=== PATIENT | female | born 1965 | race Caucasian/White ===

== ENCOUNTER 2018-06-15 09:49 | Emergency (ER) | payer OTHER ==
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
[2018-06-15 13:46] VITALS: BP 136/72; TEMP 99.2; O2SAT 99
== END 2018-06-15 13:30 | disposition home or self-care (01) ==
LOC: ER 09:49
DX: S62.350A Nondisplaced fracture of shaft of second metacarpal bone, right hand, initial encounter for closed fracture (principal); S39.012A Strain of muscle, fascia and tendon of lower back, initial encounter; N30.00 Acute cystitis without hematuria; M47.812 Spondylosis without myelopathy or radiculopathy, cervical region; Z85.3 Personal history of malignant neoplasm of breast; V49.59XA Passenger injured in collision with other motor vehicles in traffic accident, initial encounter; Y92.410 Unspecified street and highway as the place of occurrence of the external cause